=== PATIENT | female | born 1950 | race Two or more races ===

== ENCOUNTER 2019-01-17 09:59 | Outpatient (CLI) | payer OTHER | END 2019-01-17 10:17 | disposition home or self-care (01) | LOC: TOM 09:59 | DX: K59.09 Other constipation (principal); C56.9 Malignant neoplasm of unspecified ovary ==

== ENCOUNTER 2019-01-18 10:11 | Outpatient (CLI) | payer OTHER | END 2019-01-18 11:00 | disposition home or self-care (01) | LOC: NUCLEAR 10:11 | DX: I20.9 Angina pectoris, unspecified (principal) ==

== ENCOUNTER 2019-01-27 09:45 | Inpatient (IN) | payer OTHER ==
[~2019-01-27] VITALS: Ht 152.4 cm; Wt 59.4 kg
[2019-01-27] MEDS ORDERED: SYNTHROID50 MCG PO (10:43)
[2019-01-27] MEDS ORDERED: SYNTHROID75 MCG PO (10:43)
[2019-01-27] MEDS ORDERED: XYZAL5 MG PO (10:44)
== END 2019-02-01 09:28 | disposition home or self-care (01) | DRG 357 ==
LOC: OB/GYN 01-30 06:20 → O/R 01-30 06:20 → SURH 01-30 09:45 → OB/GYN 01-30 15:37 → SURH 01-30 22:30 → OB/GYN 02-01 09:28
PROVIDERS: ADMIT Obstetrics & Gynecology Gynecologic Oncology
PROC: 0UT20ZZ Resection of Bilateral Ovaries, Open Approach (ICD-10-PCS; 2019-01-30)
PROC: 0UT70ZZ Resection of Bilateral Fallopian Tubes, Open Approach (ICD-10-PCS; 2019-01-30)
PROC: 0T9B70Z Drainage of Bladder with Drainage Device, Via Natural or Artificial Opening (ICD-10-PCS; 2019-01-30)
PROC: 0DBU0ZZ Excision of Omentum, Open Approach (ICD-10-PCS; principal; 2019-01-30 22:30)
DX: D20.1 Benign neoplasm of soft tissue of peritoneum (principal); R18.8 Other ascites; D27.1 Benign neoplasm of left ovary; D27.0 Benign neoplasm of right ovary; E03.8 Other specified hypothyroidism; R97.1 Elevated cancer antigen 125 [CA 125]

== ENCOUNTER 2021-07-03 08:10 | Outpatient (CLI) | payer OTHER ==
[~2021-07-03 08:10] MED LIST: SYNTHROID50 MCG PO; SYNTHROID75 MCG PO; XYZAL5 MG PO
== END 2021-07-03 09:26 | disposition home or self-care (01) ==
LOC: SONOGRAMA 08:10
PROVIDERS: ATTEND Pathology Anatomic Pathology & Clinical Pathology
DX: D34 Benign neoplasm of thyroid gland (principal); E04.8 Other specified nontoxic goiter